=== PATIENT | female | born 1995 | race Caucasian/White ===

== ENCOUNTER 2021-10-23 21:18 | Emergency (ER) | payer OTHER | END 2021-10-23 22:50 | disposition home or self-care (01) | LOC: JD.ED 21:18 | DX: S60.011A Contusion of right thumb without damage to nail, initial encounter (principal); W23.1XXA Caught, crushed, jammed, or pinched between stationary objects, initial encounter | CPT/HCPCS: 11740; 73140-26-F5; 73140-F5; 99283; 99283-25 ==